=== PATIENT | female | born 1965 ===

== ENCOUNTER 2022-08-13 05:39 | Day surgery (SDC) | payer OTHER ==
[~2022-08-13] VITALS: Ht 157.5 cm; Wt 87.1 kg
[~2022-08-13 05:39] MED LIST: ATORVASTATIN CA80 MG; HYDROCHLOROTHIA25 MG; JARDIANCE25 MG; LOSARTAN POTASSI1 GM; METFORMIN HCL1000 M2
[2022-08-13] MEDS ORDERED: PERCOCET 5-3251 EACH PO (09:21)
== END 2022-08-13 11:15 | disposition home or self-care (01) ==
LOC: CIR.AMB 05:39
PROVIDERS: ATTEND Surgery
DX: D35.1 Benign neoplasm of parathyroid gland (principal); E21.0 Primary hyperparathyroidism; Z20.822 Contact with and (suspected) exposure to COVID-19; I10 Essential (primary) hypertension; E11.9 Type 2 diabetes mellitus without complications; Z86.73 Personal history of transient ischemic attack (TIA), and cerebral infarction without residual deficits; Z79.84 Long term (current) use of oral hypoglycemic drugs